=== PATIENT | female | born 1950 | race Caucasian/White ===

== ENCOUNTER 2018-08-05 08:52 | Day surgery (SDC) ==
[~2018-08-05 08:52] MED LIST: BRIMONIDINE TARTRATE 0.2% OPTH SOL OP PRN; BSS WITH EPINEPHRINE OP ONE; DEX-MOXI-KETOR OPTH INJ 1/0.5/0.4 MG/ML IO ONE; LIDOCAINE 1% 20 ML MDV ID STA; LIDOCAINE 1%/PHENYLEPHRINE 1.5% BSS (SURGERY) INTRAOCULA ONE; ZOFRAN 4 MG/2 ML IVP ONE
[2018-08-05] MEDS: TETRACAINE 0.5% UNIT-DOSE OP PRN ×2 (09:10→09:40)
[2018-08-05] MEDS: CYCLOGYL 2% OPTH OP PRN ×3 (09:10→09:20)
[2018-08-05] MEDS: BETADINE OPTH PREP OP PRN ×2 (09:10→09:40)
[2018-08-05] MEDS ORDERED: ZOFRAN 4 MG/2 ML ONE (09:45)
[2018-08-05] MEDS ORDERED: VERSED ONE (09:45)
[2018-08-05] MEDS ORDERED: SUBLIMAZE ONE (09:45)
[2018-08-05 11:38] VITALS: TEMP 97.5
[2018-08-08 17:05] VITALS: BP 132/74
== END 2018-08-05 10:35 | disposition home or self-care (01) ==
LOC: SURG 08:52
PROVIDERS: ATTEND Ophthalmology
DX: H25.812 Combined forms of age-related cataract, left eye (principal)

== ENCOUNTER 2018-08-19 07:54 | Day surgery (SDC) ==
[2018-08-19] MEDS: CYCLOGYL 2% OPTH OP PRN ×3 (08:05→08:15)
[2018-08-19] MEDS: BETADINE OPTH PREP OP PRN ×2 (08:05→09:10)
[2018-08-19] MEDS: TETRACAINE 0.5% UNIT-DOSE OP PRN ×2 (08:05→09:10)
[2018-08-19] MEDS ORDERED: SUBLIMAZE ONE (09:15)
[2018-08-19] MEDS ORDERED: VERSED ONE (09:15)
[2018-08-19] MEDS ORDERED: ZOFRAN 4 MG/2 ML ONE (09:15)
[2018-08-19 10:45] VITALS: BP 106/69
[2018-08-19 11:20] VITALS: TEMP 97.3
== END 2018-08-19 09:55 | disposition home or self-care (01) ==
LOC: SURG 07:54
PROVIDERS: ATTEND Ophthalmology
DX: H25.811 Combined forms of age-related cataract, right eye (principal)